=== PATIENT | male | born 1955 | race Caucasian/White ===

== ENCOUNTER 2018-06-23 11:54 | Day surgery (SDC) | payer MEDICARE ==
[~2018-06-23] VITALS: Ht 170.2 cm; Wt 125.9 kg
[~2018-06-23 11:54] MED LIST: ASPI325; Aspir 8181 MG PO; Coreg12.5 MG PO; FURO40 PO; Lithium Carbon150 MG PO; METO100ER; NITR.4SL SL; OXYACE5T PO; POTCHL10ER PO; PROM25 PO; ROSU10TA; ROSU10TA PO; VALSARTAN-HCTZ1 EAC3 PO; XARELTO20 MG PO
[2018-06-30] MEDS ORDERED: Diovan320 MG PO (14:59)
[2018-06-30] MEDS ORDERED: ASPI81CH PO (15:03)
== END 2018-06-23 13:54 | disposition home or self-care (01) ==
LOC: ORSCSDS 11:54
PROVIDERS: Internal Medicine Gastroenterology
PROC: 0DBL8ZX Excision of Transverse Colon, Via Natural or Artificial Opening Endoscopic, Diagnostic (ICD-10-PCS; principal; 2018-06-23 13:15)
DX: Z12.11 Encounter for screening for malignant neoplasm of colon (principal); D12.3 Benign neoplasm of transverse colon; K57.30 Diverticulosis of large intestine without perforation or abscess without bleeding; K64.1 Second degree hemorrhoids; I10 Essential (primary) hypertension; I25.10 Atherosclerotic heart disease of native coronary artery without angina pectoris; I25.2 Old myocardial infarction; G47.33 Obstructive sleep apnea (adult) (pediatric); I48.91 Unspecified atrial fibrillation; Z79.01 Long term (current) use of anticoagulants; E66.01 Morbid (severe) obesity due to excess calories; Z68.41 Body mass index [BMI] 40.0-44.9, adult; Z79.82 Long term (current) use of aspirin; Z79.899 Other long term (current) drug therapy
CPT/HCPCS: 88305; J7120

== ENCOUNTER 2018-07-01 06:38 | Day surgery (SDC) | payer MEDICARE ==
[~2018-07-01] VITALS: Ht 170.2 cm; Wt 125.0 kg
[~2018-07-01 06:38] MED LIST changes: +ASPI81CH PO; +Diovan320 MG PO
[2018-07-01] MEDS ORDERED: HYDCHL25 PO (07:24)
[2018-07-01] MEDS ORDERED: Lithium Carbon150 MG PO (07:24)
[2018-07-01] MEDS ORDERED: LISI5 PO (07:25)
== END 2018-07-01 22:43 | disposition home or self-care (01) ==
LOC: MHTC 06:38
DX: I34.0 Nonrheumatic mitral (valve) insufficiency (principal); I10 Essential (primary) hypertension; E78.5 Hyperlipidemia, unspecified; E78.00 Pure hypercholesterolemia, unspecified; E66.9 Obesity, unspecified
CPT/HCPCS: 93312; 93325; J7120

== ENCOUNTER 2018-11-27 11:37 | Emergency (ER) | payer MEDICARE, OTHER ==
[~2018-11-27] VITALS: Ht 170.2 cm; Wt 126.1 kg
[~2018-11-27 11:37] MED LIST changes: -ASPI81CH PO; +HYDCHL25 PO; +LO-DOSE ASPIRIN81 MG PO; +Prinivil10 MG PO
[2018-11-27 12:48] LABS: BASOPHILS ABSOLUTE AUTO 0.02 K/mm3 (0.00-0.23); BASOPHILS PERCENT AUTO 0 % (0-2); EOSINOPHILS ABSOLUTE AUTO 0.09 K/mm3 (0.00-0.68); EOSINOPHILS PERCENT AUTO 1 % (0-6); Hematocrit 20.6 % (37.0-53.0); IMMATURE GRAN ABSOLUTE AUTO 0.08 K/mm3 (0.00-0.10); IMMATURE GRAN PERCENT AUTO 1 % (0-1); LYMPHOCYTES PERCENT AUTO 16 % (21-46); MONOCYTES PERCENT AUTO 6 % (4-13); Mean Corpuscular HGB 25.6 pg (26.0-34.0); Mean Corpuscular HGB Conc 29.1 g/dL (31.5-36.5); Mean Corpuscular Volume 88 fL (80-100); Mean Platelet Volume 11.2 fL (9.1-12.4); NEUTROPHILS ABSOLUTE AUTO 7.29 K/mm3 (1.96-9.15); NEUTROPHILS PERCENT AUTO 76 % (41-73); NRBC ABSOLUTE 0.02 K/mm3 (0.00-0.02); NRBC Auto 0.2 /100 WBC (0.0-0.2); Platelet Count 185 K/mm3 (150-400); RDW Coefficient Variation 18.4 % (11.7-14.2); RDW Standard Deviation 58.7 fL (35.1-46.3); Red Blood Cell Count 2.34 M/mm3 (4.30-5.90); White Blood Cell Count 9.58 K/mm3 (4.00-11.30)
[2018-11-27 13:02] LABS: International Normalized Ratio 1.15
[2018-11-27 13:10] LABS: Alanine Aminotransfer (ALT/SGP 21 U/L (12-78); Albumin, Blood 3.3 g/dL (3.4-5.0); Alk Phos 69 U/L (50-136); Anion Gap 7 mmol/L (6-16); Aspartate Aminotrans (AST/SGOT 13 U/L (12-37); Bilirubin, Total 1.3 mg/dL (0.1-1.0); Blood Urea Nitrogen 19 mg/dL (8-24); Bun/Creatinine Ratio 23.7 (12.0-20.0); CO2, Blood 27 mmol/L (21-32); Calcium, Blood 8.2 mg/dL (8.5-10.1); Chloride, Blood 106 mmol/L (98-108); Globulin, Blood 3.2 g/dL (2.2-4.0); Glomerular Filtration Rate >60 (60-); Glucose, Blood 100 mg/dL (70-99); Potassium, Blood 3.7 mmol/L (3.5-5.5); Sodium, Blood 140 mmol/L (136-145); Total Protein, Blood 6.5 g/dL (6.4-8.2)
[2018-11-27] MEDS ORDERED: Micro-K10 MEQ PO (13:25)
[2018-11-27] MEDS ORDERED: FURO20 PO (13:26)
[2018-11-27] MEDS ORDERED: AMITRIP CDP PO (13:27)
[2019-01-20] MEDS ORDERED: NITR.4SL SL (11:09)
[2019-01-20] MEDS ORDERED: AMITRIP CDP PO (11:10)
== END 2018-11-27 15:38 | disposition short-term general hospital (02) ==
LOC: ER 11:37
PROVIDERS: Emergency Medicine
DX: K92.2 Gastrointestinal hemorrhage, unspecified (principal); D64.9 Anemia, unspecified; I48.91 Unspecified atrial fibrillation; Z88.8 Allergy status to other drugs, medicaments and biological substances; Z79.899 Other long term (current) drug therapy; Z79.82 Long term (current) use of aspirin; I10 Essential (primary) hypertension; I25.10 Atherosclerotic heart disease of native coronary artery without angina pectoris; Z87.891 Personal history of nicotine dependence
CPT/HCPCS: 36415; 36430; 80053; 85025; 85610; 86850; 86900; 86901; 86923; 93005; 93010; 96365; 96376; 99285-25; C9113; J7030; P9016

== ENCOUNTER 2018-12-10 19:21 | Emergency (ER) | payer MEDICARE, OTHER ==
[~2018-12-10] VITALS: Ht 170.2 cm; Wt 121.6 kg
[~2018-12-10 19:21] MED LIST changes: +AMITRIP CDP PO; +FURO20 PO; +Micro-K10 MEQ PO
[2018-12-10] MEDS ORDERED: PANT40 PO (19:34)
[2018-12-10 19:52] LABS: BASOPHILS ABSOLUTE AUTO 0.03 K/mm3 (0.00-0.23); BASOPHILS PERCENT AUTO 0 % (0-2); EOSINOPHILS PERCENT AUTO 1 % (0-6); Hematocrit 29.7 % (37.0-53.0); Hemoglobin 9.2 g/dL (13.5-17.5); IMMATURE GRAN ABSOLUTE AUTO 0.14 K/mm3 (0.00-0.10); IMMATURE GRAN PERCENT AUTO 1 % (0-1); LYMPHOCYTES ABSOLUTE AUTO 1.36 K/mm3 (0.84-5.20); LYMPHOCYTES PERCENT AUTO 14 % (21-46); MONOCYTES ABSOLUTE AUTO 0.59 K/mm3 (0.16-1.47); MONOCYTES PERCENT AUTO 6 % (4-13); Mean Corpuscular HGB 27.5 pg (26.0-34.0); Mean Corpuscular Volume 89 fL (80-100); Mean Platelet Volume 10.6 fL (9.1-12.4); NEUTROPHILS ABSOLUTE AUTO 7.77 K/mm3 (1.96-9.15); NEUTROPHILS PERCENT AUTO 78 % (41-73); NRBC ABSOLUTE 0.03 K/mm3 (0.00-0.02); NRBC Auto 0.3 /100 WBC (0.0-0.2); Platelet Count 349 K/mm3 (150-400); RDW Coefficient Variation 17.4 % (11.7-14.2); RDW Standard Deviation 54.6 fL (35.1-46.3); Red Blood Cell Count 3.35 M/mm3 (4.30-5.90); White Blood Cell Count 9.99 K/mm3 (4.00-11.30)
[2018-12-10 20:08] LABS: International Normalized Ratio 1.13; Prothrombin Time Results 11.8 Sec (9.7-11.5)
[2018-12-10 20:09] LABS: Alanine Aminotransfer (ALT/SGP 38 U/L (12-78); Albumin, Blood 3.5 g/dL (3.4-5.0); Albumin/Globulin Ratio 0.9 (0.8-1.8); Alk Phos 110 U/L (50-136); Anion Gap 8 mmol/L (6-16); Aspartate Aminotrans (AST/SGOT 22 U/L (12-37); Bilirubin, Total 0.8 mg/dL (0.1-1.0); Blood Urea Nitrogen 15 mg/dL (8-24); Bun/Creatinine Ratio 15.8 (12.0-20.0); CO2, Blood 26 mmol/L (21-32); Calcium, Blood 8.8 mg/dL (8.5-10.1); Chloride, Blood 106 mmol/L (98-108); Creatinine, Blood 0.95 mg/dL (0.60-1.20); Globulin, Blood 3.7 g/dL (2.2-4.0); Glomerular Filtration Rate >60 (60-); Glucose, Blood 121 mg/dL (70-99); Potassium, Blood 4.1 mmol/L (3.5-5.5); Sodium, Blood 140 mmol/L (136-145); Total Protein, Blood 7.2 g/dL (6.4-8.2)
[2019-01-20] MEDS ORDERED: NITR.4SL SL (11:09)
[2019-01-20] MEDS ORDERED: AMITRIP CDP PO (11:10)
== END 2018-12-10 23:16 | disposition home or self-care (01) ==
LOC: ER 19:21
PROVIDERS: Physician Assistant
DX: I71.4 Abdominal aortic aneurysm, without rupture (principal); K42.9 Umbilical hernia without obstruction or gangrene; K40.20 Bilateral inguinal hernia, without obstruction or gangrene, not specified as recurrent; I25.10 Atherosclerotic heart disease of native coronary artery without angina pectoris; I10 Essential (primary) hypertension; I48.91 Unspecified atrial fibrillation; Z87.19 Personal history of other diseases of the digestive system; Z87.891 Personal history of nicotine dependence; Z88.8 Allergy status to other drugs, medicaments and biological substances; Z88.2 Allergy status to sulfonamides; Z79.899 Other long term (current) drug therapy
CPT/HCPCS: 74177; 76705; 80053; 82272; 83690; 85025; 85610; 85730; 86850; 86900; 86901; 93005; 93010; 96361; 96374-59; 96376; 99284-25; A9270; J1170; J7030; Q9967

== ENCOUNTER → 2018-12-29 | Outpatient (CLI) | payer MEDICARE ==
[~2018-12-29] MED LIST changes: +CYCL10 PO; +Norco 5-325 Ta1 EACH PO; +PANT40 PO
== END | disposition home or self-care (01) ==
LOC: LAB 09:50 → LAB SHORT 09:50
DX: D51.8 Other vitamin B12 deficiency anemias (principal)
CPT/HCPCS: 82607; 82746

== ENCOUNTER 2019-01-01 12:57 | Emergency (ER) | payer MEDICARE, OTHER ==
[~2019-01-01] VITALS: Ht 170.2 cm; Wt 122.9 kg
[~2019-01-01 12:57] MED LIST changes: -CYCL10 PO; -Norco 5-325 Ta1 EACH PO
[2019-01-01 13:29] LABS: Source, Urine Clean Catch
[2019-01-01 13:32] LABS: BASOPHILS ABSOLUTE AUTO 0.04 K/mm3 (0.00-0.23); BASOPHILS PERCENT AUTO 0 % (0-2); EOSINOPHILS ABSOLUTE AUTO 0.14 K/mm3 (0.00-0.68); EOSINOPHILS PERCENT AUTO 1 % (0-6); Hematocrit 32.4 % (37.0-53.0); IMMATURE GRAN ABSOLUTE AUTO 0.07 K/mm3 (0.00-0.10); IMMATURE GRAN PERCENT AUTO 1 % (0-1); LYMPHOCYTES ABSOLUTE AUTO 2.01 K/mm3 (0.84-5.20); LYMPHOCYTES PERCENT AUTO 21 % (21-46); MONOCYTES ABSOLUTE AUTO 0.77 K/mm3 (0.16-1.47); MONOCYTES PERCENT AUTO 8 % (4-13); Mean Corpuscular HGB 27.8 pg (26.0-34.0); Mean Corpuscular HGB Conc 30.9 g/dL (31.5-36.5); Mean Corpuscular Volume 90 fL (80-100); Mean Platelet Volume 10.9 fL (9.1-12.4); NEUTROPHILS ABSOLUTE AUTO 6.65 K/mm3 (1.96-9.15); NEUTROPHILS PERCENT AUTO 69 % (41-73); Platelet Count 239 K/mm3 (150-400); RDW Coefficient Variation 17.6 % (11.7-14.2); RDW Standard Deviation 57.9 fL (35.1-46.3); White Blood Cell Count 9.68 K/mm3 (4.00-11.30)
[2019-01-01 13:43] LABS: Bilirubin, Urine Neg (Neg); Blood, Urine 1+ (Neg); Glucose Qualitative, Urine Neg (Neg); Ketones, Urine Neg (Neg); Leukocyte Esterase, Urine Neg (Neg); Nitrite, Urine Neg (Neg); Protein, Urine Neg (Neg); Urobilinogen, Urine NORM (Normal)
[2019-01-01 13:49] LABS: Appearance, Urine Clear (Clear); Color, Urine Yellow (P-Yellow)
[2019-01-01 13:51] LABS: Bacteria Few /hpf; Squamous Epithelial Cells Rare /hpf (Few); White Blood Cells, Urine 0-2 /hpf (0-5)
[2019-01-01 14:09] LABS: Alanine Aminotransfer (ALT/SGP 28 U/L (12-78); Albumin, Blood 3.7 g/dL (3.4-5.0); Alk Phos 91 U/L (50-136); Anion Gap 8 mmol/L (6-16); Aspartate Aminotrans (AST/SGOT 21 U/L (12-37); Blood Urea Nitrogen 12 mg/dL (8-24); Bun/Creatinine Ratio 12.9 (12.0-20.0); CO2, Blood 26 mmol/L (21-32); Calcium, Blood 8.4 mg/dL (8.5-10.1); Chloride, Blood 105 mmol/L (98-108); Creatinine, Blood 0.93 mg/dL (0.60-1.20); Globulin, Blood 3.6 g/dL (2.2-4.0); Glomerular Filtration Rate >60 (60-); Glucose, Blood 78 mg/dL (70-99); Potassium, Blood 4.2 mmol/L (3.5-5.5); Sodium, Blood 139 mmol/L (136-145); Total Protein, Blood 7.3 g/dL (6.4-8.2)
[2019-01-01] MEDS ORDERED: Norco 5-325 Ta1 EACH PO (16:30)
[2019-01-01] MEDS ORDERED: CYCL10 PO (16:30)
[2019-01-20] MEDS ORDERED: NITR.4SL SL (11:09)
[2019-01-20] MEDS ORDERED: AMITRIP CDP PO (11:10)
== END 2019-01-01 16:49 | disposition home or self-care (01) ==
LOC: ER 12:57
PROVIDERS: Physician Assistant
DX: M54.5 Low back pain (principal); Z88.8 Allergy status to other drugs, medicaments and biological substances; Z79.82 Long term (current) use of aspirin; Z79.899 Other long term (current) drug therapy; Z95.1 Presence of aortocoronary bypass graft
CPT/HCPCS: 36415; 74177; 80053; 81001; 83690; 85025; 96374-59; 99284-25; J1100; Q9967

== ENCOUNTER 2019-01-21 10:41 | Day surgery (SDC) | payer MEDICARE, OTHER ==
[~2019-01-21 10:41] MED LIST changes: +CYCL10 PO; +Norco 5-325 Ta1 EACH PO
== END 2019-01-21 12:20 | disposition home or self-care (01) ==
LOC: ORSCSDS 10:41
PROVIDERS: Internal Medicine Gastroenterology
PROC: 0D598ZZ Destruction of Duodenum, Via Natural or Artificial Opening Endoscopic (ICD-10-PCS; principal; 2019-01-21 12:00)
DX: D50.9 Iron deficiency anemia, unspecified (principal); Q27.33 Arteriovenous malformation of digestive system vessel; I10 Essential (primary) hypertension; G47.33 Obstructive sleep apnea (adult) (pediatric); I48.91 Unspecified atrial fibrillation; I25.10 Atherosclerotic heart disease of native coronary artery without angina pectoris; E78.00 Pure hypercholesterolemia, unspecified; Z87.891 Personal history of nicotine dependence; E66.9 Obesity, unspecified; Z68.41 Body mass index [BMI] 40.0-44.9, adult; Z79.01 Long term (current) use of anticoagulants; Z79.82 Long term (current) use of aspirin; Z79.899 Other long term (current) drug therapy
CPT/HCPCS: J2704; J7120

== ENCOUNTER → 2019-03-30 | Outpatient (CLI) | payer MEDICARE ==
[2019-03-30 14:49] LABS: Anion Gap 5 mmol/L (6-16); Blood Urea Nitrogen 19 mg/dL (8-24); Bun/Creatinine Ratio 18.1 (12.0-20.0); CO2, Blood 30 mmol/L (21-32); Calcium, Blood 9.3 mg/dL (8.5-10.1); Chloride, Blood 107 mmol/L (98-108); Creatinine, Blood 1.05 mg/dL (0.60-1.20); Glomerular Filtration Rate >60 (60-); Glucose, Blood 108 mg/dL (70-99); Potassium, Blood 4.4 mmol/L (3.5-5.5); Sodium, Blood 142 mmol/L (136-145)
== END | disposition home or self-care (01) ==
LOC: LAB SHORT 13:05 → LAB 13:05
PROVIDERS: Registered Nurse
DX: I50.32 Chronic diastolic (congestive) heart failure (principal)
CPT/HCPCS: 80048

== ENCOUNTER 2022-06-07 03:36 | Emergency (ER) | payer MEDICARE ==
[~2022-06-07] VITALS: Ht 170.2 cm; Wt 127.0 kg
[2022-06-07 03:49] LABS: BASOPHILS ABSOLUTE AUTO 0.04 K/mm3 (0.00-0.23); BASOPHILS PERCENT AUTO 0 % (0-2); EOSINOPHILS ABSOLUTE AUTO 0.12 K/mm3 (0.00-0.68); EOSINOPHILS PERCENT AUTO 1 % (0-6); Hematocrit 37.8 % (37.0-53.0); IMMATURE GRAN ABSOLUTE AUTO 0.03 K/mm3 (0.00-0.10); IMMATURE GRAN PERCENT AUTO 0 % (0-1); LYMPHOCYTES ABSOLUTE AUTO 2.36 K/mm3 (0.84-5.20); LYMPHOCYTES PERCENT AUTO 24 % (21-46); MONOCYTES ABSOLUTE AUTO 0.68 K/mm3 (0.16-1.47); MONOCYTES PERCENT AUTO 7 % (4-13); Mean Corpuscular HGB 29.7 pg (26.0-34.0); Mean Corpuscular HGB Conc 34.4 g/dL (31.5-36.5); Mean Corpuscular Volume 86 fL (80-100); NEUTROPHILS ABSOLUTE AUTO 6.83 K/mm3 (1.96-9.15); NEUTROPHILS PERCENT AUTO 68 % (41-73); Platelet Count 229 K/mm3 (150-400); RDW Coefficient Variation 14.4 % (11.7-14.2); RDW Standard Deviation 45.1 fL (35.1-46.3); Red Blood Cell Count 4.38 M/mm3 (4.30-5.90); White Blood Cell Count 10.06 K/mm3 (4.00-11.30)
[2022-06-07 04:15] LABS: Albumin, Blood 3.6 g/dL (3.4-5.0); Albumin/Globulin Ratio 0.9 (0.8-1.8); Bilirubin, Total 0.9 mg/dL (0.1-1.0); Bun/Creatinine Ratio 15.3 (12.0-20.0); Calcium, Blood 8.6 mg/dL (8.5-10.1); Creatinine, Blood 0.92 mg/dL (0.60-1.20); Globulin, Blood 3.8 g/dL (2.2-4.0); Total Protein, Blood 7.4 g/dL (6.4-8.2)
== END 2022-06-07 07:36 | disposition home or self-care (01) ==
LOC: ER 03:36
PROVIDERS: Emergency Medicine
DX: R10.11 Right upper quadrant pain (principal); R10.31 Right lower quadrant pain; I25.10 Atherosclerotic heart disease of native coronary artery without angina pectoris; I10 Essential (primary) hypertension; I48.91 Unspecified atrial fibrillation; Z79.01 Long term (current) use of anticoagulants; Z88.8 Allergy status to other drugs, medicaments and biological substances; Z79.899 Other long term (current) drug therapy
CPT/HCPCS: 74177; 76705; 80053; 83690; 84484; 85025; 93005; 93010; C9113; J2270; Q9967

== ENCOUNTER 2024-09-01 12:06 | Day surgery (SDC) | payer MEDICARE ==
[~2024-09-01] VITALS: Ht 170.2 cm; Wt 116.0 kg
[~2024-09-01 12:06] MED LIST changes: +ALBU90OI INH; +LIMBITROL PO; +Povidone-Iodine 450 DROP/30 ML Solution ONE; +ROSUVASTATIN CA10 MG PO; +Tetracaine HCl/Pf 0.5% Opth Soln 4 ml ONE
[2024-09-01] MEDS ORDERED: FentaNYL Citrate 50 MCG/ML 2 ML Injection ONE (12:18)
[2024-09-01] MEDS ORDERED: Midazolam HCl 1MG / ML 2ML Vial ONE (12:19)
[2024-09-01] MEDS ORDERED: Moxifloxacin HCL 0.5 MG/0.1 ML 0.4MLSYR LEFTEYE ONE (12:27)
[2024-09-01] MEDS ORDERED: Lidocaine HCl/Pf 1% 5 ML VIAL XX ONE (12:27)
[2024-09-01] MEDS ORDERED: Balanced Salt Epinephrine Irrigation Solution 500 mL LEFTEYE ONE (12:27)
[2024-09-01] MEDS ORDERED: CARVEDILOL6.25 MG PO (12:32)
[2024-09-01 15:16] VITALS: BP 143/87
== END 2024-09-01 13:30 | disposition home or self-care (01) ==
LOC: ORSCSDS 12:06
PROVIDERS: Student in an Organized Health Care Education/Training Program
PROC: 08RK3JZ Replacement of Left Lens with Synthetic Substitute, Percutaneous Approach (ICD-10-PCS; principal; 2024-09-01 13:30)
DX: H25.813 Combined forms of age-related cataract, bilateral (principal); Z87.891 Personal history of nicotine dependence; I48.91 Unspecified atrial fibrillation; I25.10 Atherosclerotic heart disease of native coronary artery without angina pectoris; E78.00 Pure hypercholesterolemia, unspecified; I10 Essential (primary) hypertension; G47.33 Obstructive sleep apnea (adult) (pediatric); E66.9 Obesity, unspecified; Z68.41 Body mass index [BMI] 40.0-44.9, adult; Z79.01 Long term (current) use of anticoagulants; Z79.82 Long term (current) use of aspirin; Z79.899 Other long term (current) drug therapy
CPT/HCPCS: 93005; 93010; J2003; J2250; J3010; V2632

== ENCOUNTER 2024-09-08 12:05 | Day surgery (SDC) | payer MEDICARE ==
[~2024-09-08] VITALS: Ht 170.2 cm; Wt 114.9 kg
[~2024-09-08 12:05] MED LIST changes: +Balanced Salt Epinephrine Irrigation Solution 500 mL IR SCH; +CARVEDILOL6.25 MG PO; +Lidocaine HCl/Pf 1% 5 ML VIAL XX SCH; +Moxifloxacin HCL 0.5 MG/0.1 ML 0.4MLSYR LEFTEYE SCH; +Moxifloxacin HCL 0.5 MG/0.1 ML 0.4MLSYR RIGHTEYE SCH; +NS 500 ML IV ONE; +PHENYLEPHRINE\\TROPICAMIDE\\TETRACAINE OPHTHALMIC DILATING SOLN LEFTEYE PRN; +PHENYLEPHRINE\\TROPICAMIDE\\TETRACAINE OPHTHALMIC DILATING SOLN RIGHTEYE PRN; +Povidone-Iodine 450 DROP/30 ML Solution LEFTEYE SCH; +Povidone-Iodine 450 DROP/30 ML Solution RIGHTEYE SCH
[2024-09-08] MEDS ORDERED: AMITRIPTYLINE (12:42)
[2024-09-08] MEDS ORDERED: CHLORDIAZEPOXIDE (12:42)
[2024-09-08] MEDS ORDERED: NS 1,000 ML IV ONE (12:52)
[2024-09-08] MEDS ORDERED: FentaNYL Citrate 50 MCG/ML 2 ML Injection ONE (13:01)
[2024-09-08] MEDS ORDERED: Midazolam HCl 1MG / ML 2ML Vial ONE (13:01)
[2024-09-08 13:22] VITALS: BP 139/79
== END 2024-09-08 13:35 | disposition home or self-care (01) ==
LOC: ORSCSDS 12:05
PROVIDERS: Student in an Organized Health Care Education/Training Program
PROC: 08RJ3JZ Replacement of Right Lens with Synthetic Substitute, Percutaneous Approach (ICD-10-PCS; principal; 2024-09-08 13:30)
DX: H25.811 Combined forms of age-related cataract, right eye (principal); Z96.1 Presence of intraocular lens; G47.33 Obstructive sleep apnea (adult) (pediatric); Z95.0 Presence of cardiac pacemaker; I10 Essential (primary) hypertension; I48.91 Unspecified atrial fibrillation; I25.10 Atherosclerotic heart disease of native coronary artery without angina pectoris; E78.00 Pure hypercholesterolemia, unspecified; Z87.891 Personal history of nicotine dependence; Z79.01 Long term (current) use of anticoagulants; Z79.82 Long term (current) use of aspirin; Z79.899 Other long term (current) drug therapy
CPT/HCPCS: J2250; J3010; J7040; V2632

== ENCOUNTER 2025-01-07 11:24 | Emergency (ER) | payer MEDICARE ==
[~2025-01-07] VITALS: Ht 170.2 cm; Wt 114.8 kg
[~2025-01-07 11:24] MED LIST changes: +AMITRIPTYLINE; -Balanced Salt Epinephrine Irrigation Solution 500 mL IR SCH; +CHLORDIAZEPOXIDE; -Lidocaine HCl/Pf 1% 5 ML VIAL XX SCH; -Moxifloxacin HCL 0.5 MG/0.1 ML 0.4MLSYR LEFTEYE SCH; -Moxifloxacin HCL 0.5 MG/0.1 ML 0.4MLSYR RIGHTEYE SCH; -NS 500 ML IV ONE; -PHENYLEPHRINE\\TROPICAMIDE\\TETRACAINE OPHTHALMIC DILATING SOLN LEFTEYE PRN; -PHENYLEPHRINE\\TROPICAMIDE\\TETRACAINE OPHTHALMIC DILATING SOLN RIGHTEYE PRN; -Povidone-Iodine 450 DROP/30 ML Solution LEFTEYE SCH; -Povidone-Iodine 450 DROP/30 ML Solution ONE; -Povidone-Iodine 450 DROP/30 ML Solution RIGHTEYE SCH; -Tetracaine HCl/Pf 0.5% Opth Soln 4 ml ONE
[2025-01-07 11:29] VITALS: BP 173/96
[2025-01-07 11:58] LABS: BASOPHILS ABSOLUTE AUTO 0.04 K/mm3 (0.00-0.23); BASOPHILS PERCENT AUTO 0 % (0-2); EOSINOPHILS ABSOLUTE AUTO 0.15 K/mm3 (0.00-0.68); EOSINOPHILS PERCENT AUTO 1 % (0-6); Hematocrit 38.0 % (37.0-53.0); Hemoglobin 12.1 g/dL (13.5-17.5); IMMATURE GRAN ABSOLUTE AUTO 0.05 K/mm3 (0.00-0.10); IMMATURE GRAN PERCENT AUTO 0 % (0-1); LYMPHOCYTES ABSOLUTE AUTO 1.95 K/mm3 (0.84-5.20); LYMPHOCYTES PERCENT AUTO 16 % (21-46); MONOCYTES ABSOLUTE AUTO 0.77 K/mm3 (0.16-1.47); MONOCYTES PERCENT AUTO 6 % (4-13); Mean Corpuscular HGB Conc 31.8 g/dL (31.5-36.5); Mean Corpuscular Volume 89 fL (80-100); NEUTROPHILS ABSOLUTE AUTO 9.26 K/mm3 (1.96-9.15); NEUTROPHILS PERCENT AUTO 76 % (41-73); NRBC ABSOLUTE 0.00 K/mm3 (0.00-0.02); NRBC Auto 0.0 /100 WBC (0.0-0.2); Platelet Count 266 K/mm3 (150-400); RDW Coefficient Variation 14.9 % (11.7-14.2); RDW Standard Deviation 47.9 fL (35.1-46.3)
[2025-01-07 12:17] LABS: Alanine Aminotransfer (ALT/SGP 31.0 U/L (12-78); Albumin, Blood 3.8 g/dL (3.4-5.0); Albumin/Globulin Ratio 0.9 (0.8-1.8); Anion Gap 7.0 mmol/L (3-11); Aspartate Aminotrans (AST/SGOT 21.0 U/L (12-37); Bilirubin, Total 1.4 mg/dL (0.1-1.0); Blood Urea Nitrogen 15.0 mg/dL (8-24); CO2, Blood 25.0 mmol/L (21-32); Calcium, Blood 8.6 mg/dL (8.5-10.1); Chloride, Blood 108.0 mmol/L (98-108); Creatinine, Blood 0.83 mg/dL (0.60-1.20); Globulin, Blood 4.4 g/dL (2.2-4.0); Glucose, Blood 100.0 mg/dL (70-99); Potassium, Blood 4.0 mmol/L (3.5-5.5); Sodium, Blood 136.0 mmol/L (136-145); Total Protein, Blood 8.2 g/dL (6.4-8.2)
[2025-01-08] MEDS ORDERED: CARV3.125 PO (08:00)
== END 2025-01-07 12:50 | disposition home or self-care (01) ==
LOC: ER 11:24
PROVIDERS: Student in an Organized Health Care Education/Training Program
DX: R07.89 Other chest pain (principal); Z53.21 Procedure and treatment not carried out due to patient leaving prior to being seen by health care provider
CPT/HCPCS: 71046; 80053; 84484; 85025; 93005; 93010; 99282-25

== ENCOUNTER 2025-01-07 17:52 | Inpatient (IN) | payer MEDICARE ==
[~2025-01-07] VITALS: Ht 170.2 cm; Wt 112.0 kg
[2025-01-07 18:19] LABS: BASOPHILS ABSOLUTE AUTO 0.04 K/mm3 (0.00-0.23); BASOPHILS PERCENT AUTO 0 % (0-2); EOSINOPHILS ABSOLUTE AUTO 0.15 K/mm3 (0.00-0.68); EOSINOPHILS PERCENT AUTO 1 % (0-6); Hematocrit 35.7 % (37.0-53.0); Hemoglobin 11.6 g/dL (13.5-17.5); IMMATURE GRAN ABSOLUTE AUTO 0.06 K/mm3 (0.00-0.10); IMMATURE GRAN PERCENT AUTO 1 % (0-1); LYMPHOCYTES ABSOLUTE AUTO 2.01 K/mm3 (0.84-5.20); LYMPHOCYTES PERCENT AUTO 16 % (21-46); MONOCYTES ABSOLUTE AUTO 0.88 K/mm3 (0.16-1.47); MONOCYTES PERCENT AUTO 7 % (4-13); Mean Corpuscular HGB Conc 32.5 g/dL (31.5-36.5); Mean Corpuscular Volume 88 fL (80-100); NEUTROPHILS ABSOLUTE AUTO 9.83 K/mm3 (1.96-9.15); NEUTROPHILS PERCENT AUTO 76 % (41-73); NRBC ABSOLUTE 0.00 K/mm3 (0.00-0.02); NRBC Auto 0.0 /100 WBC (0.0-0.2); Platelet Count 279 K/mm3 (150-400); RDW Coefficient Variation 14.9 % (11.7-14.2); RDW Standard Deviation 48.2 fL (35.1-46.3)
[2025-01-07 18:43] LABS: Anion Gap 9.0 mmol/L (3-11); Blood Urea Nitrogen 16.0 mg/dL (8-24); CO2, Blood 23.0 mmol/L (21-32); Calcium, Blood 8.6 mg/dL (8.5-10.1); Chloride, Blood 108.0 mmol/L (98-108); Creatinine, Blood 0.87 mg/dL (0.60-1.20); Glucose, Blood 124.0 mg/dL (70-99); Magnesium, Blood 2.3 mg/dL (1.6-2.4); Potassium, Blood 4.1 mmol/L (3.5-5.5); Sodium, Blood 136.0 mmol/L (136-145)
[2025-01-08] VITALS (8 sets, daily range): BP systolic 104–154; BP diastolic 54–94
[2025-01-08] MEDS ORDERED: Ondansetron HCl 2 MG / ML 2ML Vial IV PRN (00:55)
[2025-01-08] MEDS ORDERED: FentaNYL Citrate 50 MCG/ML 2 ML Injection IV PRN (01:00)
[2025-01-08] MEDS ORDERED: Dose Adjust by Pharmacy XX STA ×2 (01:54→11:10)
[2025-01-08] MEDS ORDERED: Heparin Sodium,Porcine/0.5 NS 500 ML IV SCH (01:55)
[2025-01-08 02:02] LABS: Prothrombin Time Results 12.7 Sec (9.7-11.5)
[2025-01-08 02:04] LABS: Alanine Aminotransfer (ALT/SGP 35.0 U/L (12-78); Albumin, Blood 3.7 g/dL (3.4-5.0); Albumin/Globulin Ratio 0.9 (0.8-1.8); Anion Gap 8.0 mmol/L (3-11); Aspartate Aminotrans (AST/SGOT 26.0 U/L (12-37); Bilirubin, Total 2.0 mg/dL (0.1-1.0); Blood Urea Nitrogen 18.0 mg/dL (8-24); CO2, Blood 24.0 mmol/L (21-32); Calcium, Blood 8.5 mg/dL (8.5-10.1); Chloride, Blood 108.0 mmol/L (98-108); Creatinine, Blood 0.91 mg/dL (0.60-1.20); Globulin, Blood 4.2 g/dL (2.2-4.0); Glucose, Blood 110.0 mg/dL (70-99); Potassium, Blood 4.1 mmol/L (3.5-5.5); Sodium, Blood 136.0 mmol/L (136-145); Total Protein, Blood 7.9 g/dL (6.4-8.2)
[2025-01-08 02:10] LABS: BASOPHILS ABSOLUTE AUTO 0.04 K/mm3 (0.00-0.23); BASOPHILS PERCENT AUTO 0 % (0-2); EOSINOPHILS ABSOLUTE AUTO 0.13 K/mm3 (0.00-0.68); EOSINOPHILS PERCENT AUTO 1 % (0-6); Hematocrit 35.8 % (37.0-53.0); Hemoglobin 11.8 g/dL (13.5-17.5); IMMATURE GRAN ABSOLUTE AUTO 0.03 K/mm3 (0.00-0.10); IMMATURE GRAN PERCENT AUTO 0 % (0-1); LYMPHOCYTES ABSOLUTE AUTO 1.85 K/mm3 (0.84-5.20); LYMPHOCYTES PERCENT AUTO 15 % (21-46); MONOCYTES ABSOLUTE AUTO 0.77 K/mm3 (0.16-1.47); MONOCYTES PERCENT AUTO 6 % (4-13); Mean Corpuscular HGB Conc 33.0 g/dL (31.5-36.5); Mean Corpuscular Volume 89 fL (80-100); NEUTROPHILS ABSOLUTE AUTO 9.28 K/mm3 (1.96-9.15); NEUTROPHILS PERCENT AUTO 77 % (41-73); NRBC ABSOLUTE 0.00 K/mm3 (0.00-0.02); NRBC Auto 0.0 /100 WBC (0.0-0.2); Platelet Count 284 K/mm3 (150-400); RDW Coefficient Variation 15.1 % (11.7-14.2); RDW Standard Deviation 49.0 fL (35.1-46.3)
--- NOTE | 2025-01-08 05:15 | NUR ---
SHIFT SUMMARY PATIENT ARRIVED TO UNIT WITHOUT COMPLICATIONS AT APPROX. 0100. WAS ORIENTED TO THE ROOM AND ABLE TO DEMONSTRATE APPROPRIATE USE OF THE CALL LIGHT. FALL PRECAUTIONS REVIEWED WITH PATIENT WHO AGREES TO CALL STAFF FOR TRANSFERS OR AMBULATORY NEEDS. NO ACUTE DISTRESS, DENIED CP OR GENERALIZED PAIN, SOB UNCHANGED. VSS. NO EVENTS OVERNIGHT. PT SLEPT W/CPAP. ATTEMPTED PACE MAKER INTERROGATION BUT UNABLE TO COMPLETE DUE TO INCOMPATIBILITY W/ AVAILABLE SOFTWARE. PT ALERT AND ORIENTED SITTING UP IN BED PRESENTLY. CALL LIGHT AND PERSONAL ITEMS WITHIN REACH, BED LOW AND LOCKED.
[2025-01-08] MEDS ORDERED: Albuterol HFA200 ACT/6.7 GM INH INH PRN (06:35)
[2025-01-08] MEDS ORDERED: CARV3.125 PO (08:00)
[2025-01-08] MEDS ORDERED: Furosemide 10 MG / ML 2ML Vial IV SCH (09:00)
[2025-01-08] MEDS ORDERED: Heparin Sodium 5000 Units/ML 1ML MDV IV ONE ×2 (11:15→19:15)
--- NOTE | 2025-01-08 14:59 | NUR ---
THIS RN CALLED DR. SOLIS TO LET HIM KNOW OF MULTIPLE 5 BEAT RUNS OF VTACH. ALSO, THE PT HAD CHEST BURNING/PAIN WHEN HE WAS IN THE BATHROOM CLEANING HIMSELF. NO NEW ORDERS AT THIS TIME.
--- NOTE | 2025-01-08 17:21 | NUR ---
END OF SHIFT SUMMARY THE PT IS A&OX4, SBA IN THE ROOM FOR LINE MANAGEMENT, AND HE CALLS APPROPRAITELY. ON TELE THE PT IS V PACED, AND HE HAS HAD A FEW 5 BEAT RUNS OF VTACH. ONE EPISODE OF CHEST BURNING/PAIN. SEE PREVIOUS NOTE. BP STABLE. HE HAS BEEN ON RA AND SP02 >93%. THE PT HAS SOB WHILE LAYING DOWN AND OCCASIONAL SOB WITH EXCERTION. THE PT HAD THE STRESS PORTION OF HIS STRESS TEST TODAY AND WILL HAVE THE RESTING PORTION TOMORROW MORNING. DR. ZELAYA WAS CONSULTED ON THE PT AND DISCUSSED DOING A LEVI AND ANGIOGRAM ONCE THE PT IS MORE STABLE. DR. ALDANA STARTED THE PT ON A 2L FLUID RESTRICTION THIS AFTERNOON, DR. BYNUM AWARE THAT THE PT HAD ALREADY CONSUMED 1600CC'S OF FLUID PRIOR TO STARTING THE FLUID RESTRICYION. PT EDUCATION PROVIDED. DR. LAKE ORDERED AN ECHO THIS MRONING AND IT WAS NOTE COMPLETED THIS SHIFT. BED IN LOW. SEE NOTES FOR UPDATES.
--- NOTE | 2025-01-08 21:46 | NUR ---
TELE REPORTED ST ELEVATION. MD DEON MADE AWARE. EKG ORDERED AND DONE. DEON OLMEDO REVIEWED EKG. NO NEW ORDERS AT THIS TIME. PT DENIES CP/PRESSURE. VITAL SIGNS STABLE.
[2025-01-09] VITALS (10 sets, daily range): BP systolic 98–144; BP diastolic 58–95
[2025-01-09 01:00] LABS: Hematocrit 33.7 % (37.0-53.0); Hemoglobin 10.8 g/dL (13.5-17.5); Platelet Count 211 K/mm3 (150-400)
[2025-01-09 01:23] LABS: Anion Gap 7 mmol/L (3-11); Blood Urea Nitrogen 20 mg/dL (8-24); CHOL/HDL RATIO 3.3; CO2, Blood 28 mmol/L (21-32); Calcium, Blood 8.5 mg/dL (8.5-10.1); Chloride, Blood 105 mmol/L (98-108); Cholesterol 109 mg/dL (50-200); Creatinine, Blood 0.98 mg/dL (0.60-1.20); Glucose, Blood 123 mg/dL (70-99); HDL Cholesterol 33 mg/dL (>39); LDL/HDL RATIO 1.6; Low Density Lipoprotein Chol 53 mg/dL (0-110); Magnesium, Blood 2.4 mg/dL (1.6-2.4); Phosphorus, Blood 3.6 mg/dL (2.5-4.9); Potassium, Blood 3.9 mmol/L (3.5-5.5); Sodium, Blood 136 mmol/L (136-145); Triglycerides 115 mg/dL (30-160); Very Low Density Lipoprot Chol 23 mg/dL (6-32)
[2025-01-09] MEDS ORDERED: Clarify Drug Order XX ONE (02:05)
--- NOTE | 2025-01-09 05:26 | NUR ---
SHIFT SUMMARY PT ALERT AND OREINTED X 4. PT V PACED WITH PVCS. SUSPECTED ELEVATED ST BUT BELIEVES RELATED TO PVCS. EKG DONE. DENIES CP/PRESSURE. PT C/O OF SOB WHEN SLEEPING, IMPROVED ON CPAP. ENCOURAGED PT TO WEAR. DENIES SOB WITH ACTIVITY. VSS. PT EDUCATED ON NPO AT MIDNIGHT WITH EXCEPTION OF WATER. MAINTAING 2L FLUID RESTRICTION. DENIES PAIN. ADEQUATE URINE OUTPUT. HEPARIN GTT MAINTAINED. THERAPEUTIC X 1. CALL HOLLOWAY WITHIN REACH. PT ABLE TO MAKE NEEDS KNOWN. PT IND TO CHAIR AND BED.
[2025-01-09] MEDS ORDERED: Dose Adjust by Pharmacy XX STA ×3 (08:55→22:53)
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
[2025-01-09] MEDS ORDERED: Isosorbide Mononitrate 30 MG TABCR PO SCH (19:30)
[2025-01-10 04:13] VITALS: BP 122/67
[2025-01-10 05:08] LABS: Hematocrit 33.9 % (37.0-53.0); Hemoglobin 11.1 g/dL (13.5-17.5); Platelet Count 244 K/mm3 (150-400)
--- NOTE | 2025-01-10 05:47 | NUR ---
SHIFT SUMMARY - A/OX4, ENDORSING 4/10 HEADACHE, TREATED PER EMAR. ON RA, SATS ABOVE 95%, PT IS V-PACED, SHORT RUN OF PVCS OVERNIGHT, VSS. AMBULATING INDEPENDENTLY IN ROOM. NPO AT 0000 FOR ANGIO TODAY, OTHERWISE ON 2L FLUID RESTRICTION. NO ACUTE EVENTS OVERNIGHT AND NO REPORTS OF CHEST PAIN.
[2025-01-10] MEDS ORDERED: Dose Adjust by Pharmacy XX STA (06:30)
[2025-01-10 07:28] VITALS: BP 112/67
[2025-01-10] MEDS ORDERED: Verapamil HCL 2.5 MG/ML 2ML Injection ONE (08:49)
[2025-01-10] MEDS ORDERED: NS 250 ML IV ONE (08:50)
[2025-01-10] MEDS ORDERED: Heparin Sodium 1000 Units/ML 10ML MDV ONE (08:50)
[2025-01-10] MEDS ORDERED: NS 1,000 ML IV ONE ×2 (08:50→09:32)
[2025-01-10] MEDS ORDERED: Nitroglycerin 2 MG/20 ML BTL ONE (08:50)
[2025-01-10] MEDS ORDERED: FentaNYL Citrate 50 MCG/ML 2 ML Injection ONE (09:31)
[2025-01-10] MEDS ORDERED: Midazolam HCl 1MG / ML 2ML Vial ONE (09:32)
[2025-01-10 11:22] VITALS: BP 147/62
[2025-01-10 12:27] VITALS: BP 151/99
[2025-01-10] MEDS ORDERED: NS 1,000 ML IV SCH (15:50)
[2025-01-10 16:10] VITALS: BP 117/62
[2025-01-10 19:45] VITALS: BP 135/74
[2025-01-11] VITALS (7 sets, daily range): BP systolic 103–162; BP diastolic 52–98
--- NOTE | 2025-01-11 05:40 | NUR ---
SHIFT SUMMARY. PATIENT IS A&OX 4, CALLS APPROPRIATELY, PLEASANT, AND COOPERATIVE WITH CARE. PATIENT IS A 1P SBA, TAKES MEDS WHOLE WITH WATER. PATIENT HAS BEEN NPO SINCE 0000 FOR LEVI TODAY 01/11/25. PATIENT HAD AN 8 BEAT RUN OF V-TACH AND A 7 BEAT RUN OF V-TACH THIS SHIFT, PATIENT ASYMPTOMATIC- AWARE-TO MONITOR PATIENT AND CMP AND MAGNESIUM LABS TO BE DRAWN THIS AM. PATIENT SLEEPING WITH CPAP ON. PATIENT C/O PAIN X1 THIS SHIFT-MEDICATED PER ORDERS; SEE EMAR. BED IS LOCKED IN THE LOWEST POSITION [facility] CALL LIGHT IN REACH. CARE IS ONGOING.
[2025-01-11 06:46] LABS: Alanine Aminotransfer (ALT/SGP 29.0 U/L (12-78); Albumin, Blood 3.3 g/dL (3.4-5.0); Albumin/Globulin Ratio 0.8 (0.8-1.8); Anion Gap 8.0 mmol/L (3-11); Aspartate Aminotrans (AST/SGOT 19.0 U/L (12-37); Bilirubin, Total 1.5 mg/dL (0.1-1.0); Blood Urea Nitrogen 16.0 mg/dL (8-24); CO2, Blood 27.0 mmol/L (21-32); Calcium, Blood 8.4 mg/dL (8.5-10.1); Chloride, Blood 105.0 mmol/L (98-108); Creatinine, Blood 0.9 mg/dL (0.60-1.20); Globulin, Blood 3.9 g/dL (2.2-4.0); Glucose, Blood 94.0 mg/dL (70-99); Magnesium, Blood 2.4 mg/dL (1.6-2.4); Potassium, Blood 4.3 mmol/L (3.5-5.5); Sodium, Blood 136.0 mmol/L (136-145); Total Protein, Blood 7.2 g/dL (6.4-8.2)
[2025-01-11] MEDS ORDERED: NS 0 ML IV ONE (08:10)
--- NOTE | 2025-01-11 19:04 | NUR ---
SHIFT SUMMARY PATIENT AOX4 ABLE TO MAKE NEEDS KNOWN. HE IS INDEPENDENT IN HIS ROOM TOLERATING HIS MEALS. HE DID COMPLAIN OF CHEST PAIN OF 0.5 OUT OF 10 AND THEN CHEST PAIN WAS GONE AND THEN HAD LEFT ELBOW PAIN CARDIOLOGY AND HOSP AWARE EKG DONE. HIS VITALS ARE STABLE. HE DENIES SOB AND SATTING >92% ON ROOM AIR.
[2025-01-12 04:00] VITALS: BP 116/75
--- NOTE | 2025-01-12 04:34 | NUR ---
SHIFT SUMMARY. PATIENT IS A&OX4, CALLS APPROPRIATELY AND IS ABLE TO MAKE HIS NEEDS KNOWN. PATIENT DENIES CHEST PAIN T/O SHIFT BUT REPORTS A HEADACHE THAT IS DULL IN NATURE-PATIENT THINKING IT COULD BE STRESS INDUCED ALTHOUGH HE HAS A HX OF FREQUENT HEADACHES. PATIENT SLEPT OFF AND ON T/O NIGHT IN INTERVALS OF "2HOURS ASLEEP AND 3 HOURS AWAKE" PER PATIENT. PATIENT USING CPAP WHEN SLEEPING. NO ACUTE CHANGES. BED IS LOCKED IN THE LOWEST POSITION WITH CALL LIGHT IN REACH. CARE IS ONGOING.
[2025-01-12 07:47] VITALS: BP 132/74
[2025-01-12 11:16] VITALS: BP 111/60
[2025-01-12] MEDS ORDERED: Isosorbide Mono30 MG PO (13:37)
[2025-01-12] MEDS ORDERED: Amoxicillin500 MG PO (13:40)
[2025-01-12] MEDS ORDERED: Amiodarone HCl200 MG PO (13:40)
[2025-01-12] MEDS ORDERED: JARDIANCE10 MG PO (13:40)
[2025-01-12] MEDS ORDERED: SOAANZ40 M1 PO (13:41)
[2025-01-12] MEDS ORDERED: METO50ER PO (13:41)
== END 2025-01-12 16:15 | disposition home or self-care (01) | DRG 280 ==
LOC: ER 17:52 → PCU 17:53 → ERHOLD 17:53 → PCU 01-08 01:17
PROVIDERS: Emergency Medicine; Internal Medicine; Student in an Organized Health Care Education/Training Program; ADMIT Internal Medicine
PROC: 4A023N6 Measurement of Cardiac Sampling and Pressure, Right Heart, Percutaneous Approach (ICD-10-PCS; principal; 2025-01-10)
PROC: B2111ZZ Fluoroscopy of Multiple Coronary Arteries using Low Osmolar Contrast (ICD-10-PCS; 2025-01-10)
PROC: B2181ZZ Fluoroscopy of Left Internal Mammary Bypass Graft using Low Osmolar Contrast (ICD-10-PCS; 2025-01-10)
PROC: B2131ZZ Fluoroscopy of Multiple Coronary Artery Bypass Grafts using Low Osmolar Contrast (ICD-10-PCS; 2025-01-10)
DX: I11.0 Hypertensive heart disease with heart failure (principal); I50.43 Acute on chronic combined systolic (congestive) and diastolic (congestive) heart failure; I21.A1 Myocardial infarction type 2; I48.19 Other persistent atrial fibrillation; T82.867A Thrombosis due to cardiac prosthetic devices, implants and grafts, initial encounter; Z68.41 Body mass index [BMI] 40.0-44.9, adult; I45.2 Bifascicular block; T82.898A Other specified complication of vascular prosthetic devices, implants and grafts, initial encounter; I25.10 Atherosclerotic heart disease of native coronary artery without angina pectoris; G47.33 Obstructive sleep apnea (adult) (pediatric); I27.22 Pulmonary hypertension due to left heart disease; I49.5 Sick sinus syndrome; I70.213 Atherosclerosis of native arteries of extremities with intermittent claudication, bilateral legs; E78.5 Hyperlipidemia, unspecified; E66.01 Morbid (severe) obesity due to excess calories; J45.20 Mild intermittent asthma, uncomplicated; I49.3 Ventricular premature depolarization; I08.0 Rheumatic disorders of both mitral and aortic valves; R07.89 Other chest pain; Y71.8 Miscellaneous cardiovascular devices associated with adverse incidents, not elsewhere classified; Z95.1 Presence of aortocoronary bypass graft; Z88.8 Allergy status to other drugs, medicaments and biological substances; Z79.82 Long term (current) use of aspirin; Z87.891 Personal history of nicotine dependence; Z95.0 Presence of cardiac pacemaker; Z79.01 Long term (current) use of anticoagulants; Z53.21 Procedure and treatment not carried out due to patient leaving prior to being seen by health care provider
CPT/HCPCS: 36415; 71046; 76937; 78452; 80048; 80053; 80061; 82947; 83735; 83880; 84100; 84484; 85014; 85018; 85025; 85049; 85610; 85730; 86141; 93005; 93010; 93017; 93457; 94660; 94762; 96374; 99152; 99153; 99282-25; 99285-25; A9270; A9500; C1769; C1887; C1894; G0378; J0706; J1644; J1938; J2250; J2785; J3010; J7030; J7050; Q9967

== ENCOUNTER 2025-02-24 08:35 | Day surgery (SDC) | payer MEDICARE ==
[2025-02-24] VITALS (11 sets, daily range): BP systolic 138–155; BP diastolic 75–92
[~2025-02-24] VITALS: Ht 170.2 cm; Wt 113.0 kg
[~2025-02-24 08:35] MED LIST changes: +Amiodarone HCl200 MG PO; +Amoxicillin500 MG PO; +CARV3.125 PO; +Isosorbide Mono30 MG PO; +JARDIANCE10 MG PO; +METO50ER PO; +SOAANZ40 M1 PO
[2025-02-24] MEDS ORDERED: Benzocaine Oral Spray 0.5ML UD ONE (09:00)
[2025-02-24] MEDS ORDERED: NS 1,000 ML IV ONE (09:34)
--- NOTE | 2025-02-24 10:45 | NUR ---
ASSUMED CARE FROM ANESTHESIA. PT AWAKE AND VERBALIZING WELL. 100% VENTRICULAR PACED.
--- NOTE | 2025-02-24 11:26 | NUR ---
PT VERBALIZED UNDERSTANDING OF WRITTEN AND VERBAL D/C INST. TAKING PO FLUIDS WELL AND AMB IN RM /S DIFFICULTY. IV REMOVED. PT TAKEN OUT OF THE HRT CENTER VIA W/C.
[2025-02-24] MEDS ORDERED: Ketamine HCl 100 MG / ML 5ML Vial IV ONE (15:46)
[2025-02-24] MEDS ORDERED: Propofol 10mg/ml 20 ml Vial (Procedural) IV ONE (15:46)
== END 2025-02-24 23:00 | disposition home or self-care (01) ==
LOC: MHTC 08:35
DX: I48.19 Other persistent atrial fibrillation (principal); R06.09 Other forms of dyspnea; I08.3 Combined rheumatic disorders of mitral, aortic and tricuspid valves; I25.10 Atherosclerotic heart disease of native coronary artery without angina pectoris; I10 Essential (primary) hypertension; E78.5 Hyperlipidemia, unspecified; G47.33 Obstructive sleep apnea (adult) (pediatric); Z87.891 Personal history of nicotine dependence; Z95.1 Presence of aortocoronary bypass graft; Z95.0 Presence of cardiac pacemaker; Z79.82 Long term (current) use of aspirin; Z79.01 Long term (current) use of anticoagulants; Z79.899 Other long term (current) drug therapy; Z88.8 Allergy status to other drugs, medicaments and biological substances
CPT/HCPCS: 92960; 93005; 93010; 93312; 93325; A9270; J2704; J7030